=== PATIENT | male | born 1950 | race Caucasian/White ===

== ENCOUNTER → 2020-08-10 11:37 | Outpatient (BNVA) | payer MEDICARE, SELFPAY | PROVIDERS: PCP Internal Medicine; Visit Provider Urology | DX: N40.1 Benign prostatic hyperplasia with lower urinary tract symptoms (principal); N13.8 Other obstructive and reflux uropathy; R35.1 Nocturia; R97.20 Elevated prostate specific antigen [PSA] | CPT/HCPCS: Q3014 ==

== ENCOUNTER → 2021-08-11 08:35 | Outpatient (BNVA) | payer MEDICARE, SELFPAY | PROVIDERS: PCP Physician Assistant Medical; Visit Provider Urology | DX: N40.1 Benign prostatic hyperplasia with lower urinary tract symptoms (principal); N13.8 Other obstructive and reflux uropathy; R97.20 Elevated prostate specific antigen [PSA] | CPT/HCPCS: Q3014 ==

== ENCOUNTER → 2022-08-10 08:28 | Outpatient (BNVA) | payer MEDICARE, SELFPAY | PROVIDERS: PCP Physician Assistant Medical; Visit Provider Urology | DX: R97.20 Elevated prostate specific antigen [PSA] (principal); N40.1 Benign prostatic hyperplasia with lower urinary tract symptoms; N13.8 Other obstructive and reflux uropathy; R35.1 Nocturia | CPT/HCPCS: 99212 ==

== ENCOUNTER 2023-08-07 09:05 | Outpatient (AMB) | payer MEDICARE, SELFPAY ==
--- NOTE | 2023-08-07 09:28 | A.OFFVIS_ITS ---
Intake Intake Visit Reasons: 1Y PSA/PVR(SET) Intake Note: Patient is Present for Follow Up PVR/PSA Urology Medication: Finasteride, Antibiotic Allergies: None Blood Thinners: None PVR: 0 Compliants: Patient states that last appt he was prescribed tamsulosin, He was on it for 2 weeks and started to get vertigo from Tamsulosin. Since then he has not been back on the tamsulosin. Allergies aspirin Allergy (Unknown, Verified 08/07/23 09:35) Unknown tamsulosin Allergy (Mild, Uncoded 08/07/23 09:35) vertigo Medication List - Last Reconciled 08/07/23 by Bernardo Ramos MD amitriptyline mg PO amlodipine 5 mg PO DAILY atenolol 50 mg PO BID fuuuucfxqh-kibbyxzmmplkl-fjju 50-325-40 mg 1 cap PO TID ceduegvpdn-qdyggfoyjqnzi-ytvf 50-325-40 mg tabs PO citalopram 40 mg PO DAILY finasteride 5 mg PO DAILY lorazepam 0.5 mg PO BID HPI HPI Comments History of Present Illness Details Edison is a pleasant male. He is a patient of Dr. Mazariegos. 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 Has continued with finasteride. PSA 0.9. Interested in pelvic floor exercises Has post void leaking Instructions provided Son has been living with him since his last year Elevated PSA/Abnormal LINDSAY: He presents for Doing well with finasteride Nocturia minimize PSA stable. Current management is finasteride. Laboratory investigations include a total PSA evaluation 03/11 4.9, 06/11 4.1 - 07/12 Bladder US - prostate 45cc, good emptying 08/13 1.2, 08/14 1.7, 08/15 2.1, 08/16 1.8 Individualized Prostate Cancer Risk Calculator 5-10% high risk, Would like to continue with observation and understands and accepts the risks of a possible delay in diagnosis. Symptoms include 06/11 , incomplete emptying, weak stream, nocturia, x 3, and are worsening 08/13 , weak stream, and are stable. Therapeutic plan will be continued finasteride with surveillance [facility] Medical History Benign prostatic hyperplasia with lower urinary tract symptoms Elevated PSA High cholesterol Migraine Nocturia Poor urinary stream Surgical History History of surgery Review of Systems Const Denies chills and Denies fever(s) Card Reports no additional complaints and Denies syncope Resp Denies cough GI Denies abdominal pain and Denies heartburn Reports as per HPI and Denies change in libido Neuro Denies syncope Psych Denies change in libido Endo Denies change in libido Physical Exam Const General: cooperative, healthy appearing, comfortable and no acute distress Orientation/consciousness: patient oriented x3 HEENT Face and sinus: Yes normal facial exam Mouth: moist mucous membranes Neck Neck: Yes normal visual inspection, Yes full ROM and Yes trachea midline Chest Chest palpation & inspection: normal inspection of the chest Resp Effort & Inspection: normal respiratory effort, able to speak in complete sentences and no respiratory distress GI Inspection: Yes normal to inspection Back/Spine/Pelvis Cervical Spine: normal cervical lordosis Thoracic/Lumbar Spine: thoracic and lumbar spine normal to inspection Skin General skin exam: no rashes or lesions noted Neuro General: patient oriented x3, gait normal, tone normal and moves all extremities Extrem General: Yes normal to inspection and Yes capillary refill normal Office Procedures Post Void Residual Post Residual Void Post Void Residual (PVR): 0 [id number] Void Residual by ultrasound Assessment & Plan Assessment & Plan (1) Elevated PSA: Code(s): R97.20 - Elevated prostate specific antigen [PSA] (2) Nocturia more than twice per night: Code(s): R35.1 - Nocturia (3) BPH w urinary obs/LUTS: Code(s): N40.1 - Benign prostatic hyperplasia with lower urinary tract symptoms; N13.8 - Other obstructive and reflux uropathy (4) Post-void dribbling: Code(s): N39.43 - Post-void dribbling Plan Six month follow-up Orders: Orders AMB Post Void Residual by ultrasound Today N13.8 - Other obstructive and reflux uropathy, N40.1 - Benign prostatic hyperplasia with lower urinary tract symptoms Patient Instructions: Imaging studies, laboratory and physical exam results were discussed and reviewed in detail. No major barriers to patient understanding were identified. An opportunity to ask questions regarding the treatment plan was provided. All questions were answered. The patient expressed understanding and agreement with the above treatment plan. The patient is aware they should contact our office by phone for worsening of their current condition or the appearance of new urologic symptoms. Compliance is encouraged with any medications and followup testing that is ordered. It is a privilege to participate in the urologic care of your patient. If you have any questions or concerns regarding treatment for the above conditions, or other urologic issues, please do not hesitate to contact me. The office telephone contact is [phone]. This note is constructed using voice recognition software. While every effort has been made to ensure accuracy director school for blind errors may have been included. Yours sincerely, Dr Bernardo Ramos MD, [facility] - Urology Providers of Expert, Compassionate Care for the Genitourinary System Coding Level of Care Code Est Pt Level 4 (22444) Diagnoses Elevated PSA R97.20 Nocturia more than twice per night R35.1 BPH w urinary obs/LUTS N40.1; N13.8 Post-void dribbling N39.43 CPT Codes Post Residual Void - PVR CPT Code: 70669-Bkmk Void Residual by ultrasound ([id number])
== END 2023-08-07 10:03 | disposition home or self-care (01) ==
PROVIDERS: Visit Provider Urology
DX: N40.1 Benign prostatic hyperplasia with lower urinary tract symptoms (principal); R97.20 Elevated prostate specific antigen [PSA]; R35.1 Nocturia; N13.8 Other obstructive and reflux uropathy; N39.43 Post-void dribbling
CPT/HCPCS: 99213

== ENCOUNTER → 2023-08-07 09:05 | Outpatient (BNVA) | payer MEDICARE, SELFPAY | PROVIDERS: Visit Provider Urology | DX: R97.20 Elevated prostate specific antigen [PSA] (principal); N40.1 Benign prostatic hyperplasia with lower urinary tract symptoms; N13.8 Other obstructive and reflux uropathy; N39.43 Post-void dribbling; R35.1 Nocturia | CPT/HCPCS: 51798; 99212 ==

== ENCOUNTER 2024-08-06 09:05 | Outpatient (AMB) | payer MEDICARE, SELFPAY ==
--- NOTE | 2024-08-06 09:35 | A.OFFVIS_ITS ---
Intake Visit Reasons: 6m follow up Intake Note: Patient is present for 6M F/U Urology Medication:FINSTERIDE Antibiotic Allergy:TAMSULOSIN Blood Thinner:NONE Laser Beam Machine Operator Required: No Allergies aspirin Allergy (Unknown, Verified 08/06/24 09:36) Unknown tamsulosin Allergy (Mild, Uncoded 08/06/24 09:36) vertigo HPI Comments Details: Edison is a pleasant male. He is a patient of Dr. Mazariegos. 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 On finasteride Previously discussed pelvic floor exercises Check PSA in 12 months Son has been living with him since his last year Elevated PSA/Abnormal LINDSAY: He presents for Doing well with finasteride Nocturia minimize PSA stable. Current management is finasteride. Laboratory investigations include a total PSA evaluation 03/11 4.9, 06/11 4.1 - 07/12 Bladder US - prostate 45cc, good emptying 08/13 1.2, 08/14 1.7, 08/15 2.1, 08/16 1.8, 08/17 0.9 Individualized Prostate Cancer Risk Calculator 5-10% high risk, Would like to continue with observation and understands and accepts the risks of a possible delay in diagnosis. Symptoms include 06/11 , incomplete emptying, weak stream, nocturia, x 3, and are worsening 08/13 , weak stream, and are stable. Therapeutic plan will be continued finasteride with interval surveillance [facility] Medical History Benign prostatic hyperplasia with lower urinary tract symptoms Elevated PSA High cholesterol Migraine Nocturia Poor urinary stream Surgical History History of surgery Review of Systems Const Denies chills and Denies fever(s) Card Reports no additional complaints and Denies syncope Resp Denies cough GI Denies abdominal pain and Denies heartburn Reports as per HPI and Denies change in libido Neuro Denies syncope Psych Denies change in libido Endo Denies change in libido Physical Exam Const General: cooperative, healthy appearing, comfortable and no acute distress Orientation/consciousness: patient oriented x3 HEENT Face and sinus: Yes normal facial exam Mouth: moist mucous membranes Neck Neck: Yes normal visual inspection, Yes full ROM and Yes trachea midline Chest Chest palpation & inspection: normal inspection of the chest Resp Effort & Inspection: normal respiratory effort, able to speak in complete sentences and no respiratory distress GI Inspection: Yes normal to inspection Back/Spine/Pelvis Cervical Spine: normal cervical lordosis Thoracic/Lumbar Spine: thoracic and lumbar spine normal to inspection Skin General skin exam: no rashes or lesions noted Neuro General: patient oriented x3, gait normal, tone normal and moves all extremities Extrem General: Yes normal to inspection and Yes capillary refill normal Results AMB Urinalysis, Automated UA Leukoctes 0 Anitha/uL Last Edit by CARMEN Dickey on 08/06/24 09:46 UA Nitrite Negative Last Edit by CARMEN Dickey on 08/06/24 09:46 UA Urobilinogen 0.2 mg/dL Last Edit by CARMEN Dickey on 08/06/24 09:4 6 UA Protein 0 mg/dL Last Edit by CARMEN Dickey on 08/06/24 09:46 UA pH 6.0 Last Edit by CARMEN Dickey on 08/06/24 09:46 UA Blood 0 Oseas/uL Last Edit by CARMEN Dickey on 08/06/24 09:46 UA Specific Okay 1.010 Last Edit by CARMEN Dickey on 08/06/24 09: 46 UA Ketone Negative Last Edit by CARMEN Dickey on 08/06/24 09:46 UA Bilirubin 0 mg/dL Last Edit by CARMEN Dickey on 08/06/24 09:46 UA Glucose 0 mg/dL Last Edit by CARMEN Dickey on 08/06/24 09:46 Results Reviewed Results Reviewed: Laboratory Last Values Urine pH (Auto) 6.0 08/06/24 09:45 Specific Okay (Auto) 1.010 08/06/24 09:45 Urine Protein (Auto) 0 mg/dL 08/06/24 09:45 Glucose (UA)(Auto) 0 mg/dL 08/06/24 09:45 Urine Ketones (Auto) Negative 08/06/24 09:45 Urine Blood (Auto) 0 Oseas/uL 08/06/24 09:45 Urine Nitrite (Auto) Negative 08/06/24 09:45 Urine Bilirubin (Auto) 0 mg/dL 08/06/24 09:45 Urine Urobilinogen (Auto) 0.2 mg/dL 08/06/24 09:45 Leukocyte Esterase (Auto) 0 Anitha/uL 08/06/24 09:45 Assessment & Plan Assessment & Plan (1) BPH w urinary obs/LUTS: Code(s): N40.1 - Benign prostatic hyperplasia with lower urinary tract symptoms; N13.8 - Other obstructive and reflux uropathy Category: Medical (2) Nocturia more than twice per night: Code(s): R35.1 - Nocturia Category: Medical (3) Elevated PSA: Code(s): R97.20 - Elevated prostate specific antigen [PSA] Category: Medical Plan Twelve month follow-up PSA Orders: Orders AMB Urinalysis Automated Today Z13.9 - Encounter for screening, unspecified Prostate Specific Antigen 364 Days R97.20 - Elevated prostate specific antigen [PSA] Patient Instructions: Imaging studies, laboratory and physical exam results were discussed and reviewed in detail. No major barriers to patient understanding were identified. An opportunity to ask questions regarding the treatment plan was provided. All questions were answered. The patient expressed understanding and agreement with the above treatment plan. The patient is aware they should contact our office by phone for worsening of their current condition or the appearance of new urologic symptoms. Compliance is encouraged with any medications and followup testing that is ordered. It is a privilege to participate in the urologic care of your patient. If you have any questions or concerns regarding treatment for the above conditions, or other urologic issues, please do not hesitate to contact me. The office telephone contact is [phone]. This note is constructed using voice recognition software. While every effort has been made to ensure accuracy stock cutter errors may have been included. Yours sincerely, Dr Bernardo Ramos MD, [facility] - Urology Providers of Expert, Compassionate Care for the Genitourinary System Coding Level of Care Code Est Pt Level 4 (92241) Diagnoses BPH w urinary obs/LUTS N40.1; N13.8 Nocturia more than twice per night R35.1 Elevated PSA R97.20
== END 2024-08-06 10:25 | disposition home or self-care (01) ==
PROVIDERS: PCP Physician Assistant Medical; Visit Provider Urology
DX: N40.1 Benign prostatic hyperplasia with lower urinary tract symptoms (principal); N13.8 Other obstructive and reflux uropathy; R35.1 Nocturia; R97.20 Elevated prostate specific antigen [PSA]; Z13.9 Encounter for screening, unspecified
CPT/HCPCS: 99214

== ENCOUNTER → 2024-08-06 09:05 | Outpatient (BNVA) | payer MEDICARE, SELFPAY | PROVIDERS: PCP Physician Assistant Medical; Visit Provider Urology | DX: N40.1 Benign prostatic hyperplasia with lower urinary tract symptoms (principal); N13.8 Other obstructive and reflux uropathy; R35.1 Nocturia; R97.20 Elevated prostate specific antigen [PSA] | CPT/HCPCS: 81003; 99212 ==

== ENCOUNTER 2025-08-10 08:49 | Outpatient (AMB) | payer MEDICARE, SELFPAY ==
--- NOTE | 2025-08-10 09:34 | A.OFFVIS_ITS ---
Intake Visit Reasons: 1y/ PSA/SET/UA Intake Note: Patient is present for 1 yr follow up Urology Medication:FINSTERIDE, Amitriptyline Antibiotic Allergy: None Blood Thinner:NONE Labs done: 07/16/25 PSA 0.78 PVR:21 mls Fiber Picker Required: No Accompanied by: Self / Same As Patient Allergies aspirin Allergy (Unknown, Verified 08/10/25 09:38) Unknown tamsulosin Allergy (Mild, Uncoded 08/06/24 09:36) vertigo HPI Comments Details: Edison is a pleasant male. He is a patient of Dr. Mazariegos. 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 On finasteride - may use 3 times per week PVR 20 cc PSA remains low 08/19 0.8 Review in 12 month 2022 Elevated PSA/Abnormal LINDSAY: He presents for Doing well with finasteride Nocturia minimize PSA stable. Current management is finasteride. Laboratory investigations include a total PSA evaluation 03/11 4.9, 06/11 4.1 - 07/12 Bladder US - prostate 45cc, good emptying 08/13 1.2, 08/14 1.7, 08/15 2.1, 08/16 1.8, 08/17 0.9, 08/19 0.8 Individualized Prostate Cancer Risk Calculator 5-10% high risk, Would like to continue with observation and understands and accepts the risks of a possible delay in diagnosis. Symptoms include 06/11 , incomplete emptying, weak stream, nocturia, x 3, and are worsening 08/13 , weak stream, and are stable. Therapeutic plan will be continued finasteride with interval surveillance [facility] Medical History Benign prostatic hyperplasia with lower urinary tract symptoms Elevated PSA High cholesterol Migraine Nocturia Poor urinary stream Surgical History History of surgery Review of Systems Const Denies chills and Denies fever(s) Card Reports no additional complaints and Denies syncope Resp Denies cough GI Denies abdominal pain and Denies heartburn Reports as per HPI and Denies change in libido Neuro Denies syncope Psych Denies change in libido Endo Denies change in libido Physical Exam Const General: cooperative, healthy appearing, comfortable and no acute distress Orientation/consciousness: patient oriented x3 HEENT Face and sinus: Yes normal facial exam Mouth: moist mucous membranes Neck Neck: Yes normal visual inspection, Yes full ROM and Yes trachea midline Chest Chest palpation & inspection: normal inspection of the chest Resp Effort & Inspection: normal respiratory effort, able to speak in complete sentences and no respiratory distress GI Inspection: Yes normal to inspection Back/Spine/Pelvis Cervical Spine: normal cervical lordosis Thoracic/Lumbar Spine: thoracic and lumbar spine normal to inspection Skin General skin exam: no rashes or lesions noted Neuro General: patient oriented x3, gait normal, tone normal and moves all extremities Extrem General: Yes normal to inspection and Yes capillary refill normal Office Procedures Post Void Residual Post Residual Void Post Void Residual (PVR): 21 [id number] Void Residual by ultrasound Results AMB Urinalysis, Automated UA Leukoctes 0 Anitha/uL Last Edit by Aundrea Cabezas [facility] on 08/10/25 09:51 UA Nitrite Negative Last Edit by Aundrea Cabezas [facility] on 08/10/25 09:51 UA Urobilinogen 0.2 mg/dL Last Edit by Aundrea Cabezas [facility] on 08/10/25 09:51 UA Protein 0 mg/dL Last Edit by Aundrea Cabezas [facility] on 08/10/25 09:51 UA pH 6.0 Last Edit by Aundrea Cabezas [facility] on 08/10/25 09:51 UA Blood 0 Oseas/uL Last Edit by Aundrea Cabezas [facility] on 08/10/25 09:51 UA Specific [place] 1.005 Last Edit by Aundrea Cabezas [facility] on 08/10/25 09:5 1 UA Ketone Negative Last Edit by Aundrea Cabezas [facility] on 08/10/25 09:51 UA Bilirubin 0 mg/dL Last Edit by Aundrea Cabezas [facility] on 08/10/25 09:51 UA Glucose 0 mg/dL Last Edit by Aundrea Cabezas [facility] on 08/10/25 09:51 Results Reviewed Results Reviewed: Laboratory Last Values Urine pH (Auto) 6.0 08/10/25 09:50 Specific [place] (Auto) 1.005 08/10/25 09:50 Urine Protein (Auto) 0 mg/dL 08/10/25 09:50 Glucose (UA)(Auto) 0 mg/dL 08/10/25 09:50 Urine Ketones (Auto) Negative 08/10/25 09:50 Urine Blood (Auto) 0 Oseas/uL 08/10/25 09:50 Urine Nitrite (Auto) Negative 08/10/25 09:50 Urine Bilirubin (Auto) 0 mg/dL 08/10/25 09:50 Urine Urobilinogen (Auto) 0.2 mg/dL 08/10/25 09:50 Leukocyte Esterase (Auto) 0 Anitha/uL 08/10/25 09:50 Assessment & Plan Assessment & Plan (1) BPH w urinary obs/LUTS: Code(s): N40.1 - Benign prostatic hyperplasia with lower urinary tract symptoms; N13.8 - Other obstructive and reflux uropathy Category: Medical (2) Nocturia more than twice per night: Code(s): R35.1 - Nocturia Category: Medical Plan 12 month follow-up Orders: Orders Prostate Specific Antigen 12 Months N13.8 - Other obstructive and reflux uropathy, N40.1 - Benign prostatic hyperplasia with lower urinary tract symptoms AMB Urinalysis Automated 08/10/25 N13.8 - Other obstructive and reflux uropathy, N40.1 - Benign prostatic hyperplasia with lower urinary tract symptoms AMB Post Void Residual by ultrasound 08/10/25 N40.1 - Benign prostatic hyp erplasia with lower urinary tract symptoms Patient Instructions: This note is constructed using voice recognition software. While every effort has been made to ensure accuracy road mixer operator errors may have been included. Imaging studies, laboratory and physical exam results were discussed and reviewed in detail. No major barriers to patient understanding were identified. An opportunity to ask questions regarding the treatment plan was provided. All questions were answered. The patient expressed understanding and agreement with the above treatment plan. The patient is aware they should contact our office by phone for worsening of their current condition or the appearance of new urologic symptoms. Compliance is encouraged with any medications and followup testing that is ordered. It is a privilege to participate in the urologic care of your patient. If you have any questions or concerns regarding treatment for the above conditions, or other urologic issues, please do not hesitate to contact me. The office telephone contact is [phone]. Sincerely, Dr Bernardo Ramos MD, [facility] - Urology Compassionate Specialist Care for the Genitourinary System Coding Level of Care Code Est Pt Level 4 (44985) Add On Problem Visit Only Diagnoses BPH w urinary obs/LUTS N40.1; N13.8 Nocturia more than twice per night R35.1 CPT Codes Post Residual Void - PVR CPT Code: 35518-Ieev Void Residual by ultrasound ([id number])
--- OUTSIDE RECORDS SUMMARY | 2025-08-10 09:35 | XMS_ITS | Encounter Summary ---
Author Organization [facility] Address [address] [place] [address] Care Team Providers Care Design Checker Name Role Phone Keon Mazariegos Primary Care Provider [phone] Encounter Details Date Type Department Care Team ([facility] st Contact Info) Description 07/20/2025 Results Follow-Up Adult Medicine [facility] [address] [place], [place] [phone] Miya Loredo PA [address] [place], [place] Social History Tobacco Use Types Packs/Day Years Used Date Smoking Tobacco: Never Smokeless Tobacco: Never Alcohol Use Standard Drinks/Week Comments Yes 0 (1 standard drink = 0.6 oz pur e alcohol) Housing Instability Answer Date Recorde d Are you worried that in the next 2 months you may not have stable housing? No 07/16/2025 Food Access & Nutrition Answer Date Rec orded Do you have access to a vari ety of food including fruits and vegetables? Yes 07/16/2025 Health Literacy Answer Date Recorded How often do you need to hav e someone help you when you read instructions, pamphlets, or other written material from your doctor or pharmacy? Never 07/16/2025 Caregiver: How often do you need to have someone help you when you read instructions, pamphlets, or other written material from your doctor or pharmacy? Not on file 07/16/2025 Financial Risk Answer Date Recorded How hard is it for you to pa y for the very basics like food, housing, medical care, and air conditioning / heating? Not very hard 07/16/2025 Transportation Answer Date Recorded Has the lack of transportati on kept you from meetings, work, or from getting things needed for daily living? No Has the lack of transportati on kept you from medical appointments or from getting medications? No 07/16/2025 Social Isolation Answer Date Recorded How often do you feel lonely or isolated from th ose around you? Never 07/16/2025 Food Risk Answer Date Recorded Within the past 12 months we worried whether our food would run out before we got money to buy more. Never true 07/16/2025 Within the past 12 months th e food we bought just didn't last and we didn't have money to get more. Never true 07/16/2025 Dependent Care Answer Date Recorded Do you need help finding or paying for care for your loved ones. For example, early childhood teacher assistant or elderly care for an older adult? No 07/16/2025 Education Answer Date Recorded Do you think completing more education or training, like finishing a GED, going to college, or learning a trade, would be helpful for you? N/A 07/16/2025 Employment and Income Answer Date Recor ded During the last four weeks, have you been actively looking for work? No 07/16/2025 Living Situation Answer Date Recorded What is your living situation? Unrecognized valu e 07/16/2025 Sex and Gender Information Value Date Recorded Sex Assigned at Male 11/23/2024 10:13 AM EDT Legal Sex Male 3:26 PM EST Gender Identity Male 11/23/2024 10:13 AM EDT Sexual Orientation Straight 11/23/2024 10 :13 AM EDT documented as of this encounter Plan of Treatment Upcoming Encounters Date Type Department Care Team (Late st Contact Info) Description 01/21/2026 10:30 AM EDT Office Visit Adult Medicine [address] [phone] Keon Mazariegos PA [address] [place] [phone] 07/19/2026 10:45 AM EST Office Visit Pulmonology [address] [place] [address] Rachel Ruvalcaba MD [address] [place] [phone] documented as of this encounter Visit Diagnoses Not on filedocumented in this encounter Additional Health Concerns Assessment Noted Time PHQ-9 Depression Total Score: 0 07/16/20 12:16 PM EST A fall risk assessment has been complete d for the patient 07/16/2025 12:16 PM EST documented as of this encounter Care Teams Design Checker Relationship Specialty Start Date End Date Keon Mazariegos PA [address] [place] [address] PCP - General Internal Medicine 10/05/24 documented as of this encounter
--- OUTSIDE RECORDS SUMMARY | 2025-08-10 09:35 | XMS_ITS | Clinical Summary ---
Author Organization [address] Address [address] [place] [phone] Phone Care Team Providers Care Tight Barrel Inspector Name Role Phone Keon Mazariegos Primary Care Provider [phone] Allergies Active Allergy Reactions Criticality Noted Date Comments Orphenadrine Citrate 06/27/2006 passes out Salicylates 06/27/2006 bleeding ulcers Medications finasteride (PROSCAR) 5 mg tablet Take 1 tablet (5 mg total) by mouth 1 (one) time each day. 3 Active meclizine (ANTIVERT) 25 mg tablet Take 1 tablet (25 mg total) by mouth 3 (three) times a day if needed for dizziness (for up to 10 days). 3 Active SUMAtriptan (IMITREX) 50 mg tablet Take 1 tablet (50 mg total) by mouth if needed for migraine (MAY REPEAT DOSE AFTER TWO HOURS IF NO RELIEF). 1 Active amitriptyline (ELAVIL) 50 mg tablet TAKE 1 TABLET BY MOUTH EVERYDAY AT BEDTIME 90 tablet 1 5 Active citalopram (CeleXA) 40 mg tabletIndications :Essential (primary) hypertension,Enco unter for immunization TAKE 1 TABLET BY MOUTH EVERY DAY IN THE MORNING 90 tablet 3 5 Active mirtazapine (REMERON) 7.5 mg tablet TAKE 1 TABLET BY MOUTH EVERYDAY AT BEDTIME 90 tablet 5 Active atenoloL (TENORMIN) 50 mg tabletIndications :Essential (primary) hypertension,[place] gn prostatic hyperplasia without lower urinary tract symptoms TAKE 1 TABLET BY MOUTH TWICE A DAY 180 tablet 5 Active amLODIPine (NORVASC) 5 mg tabletIndications :Essential (primary) hypertension,[place]y gn prostatic hyperplasia without lower urinary tract symptoms TAKE 1 TABLET BY MOUTH EVERY DAY 90 tablet 5 Active butalbital-acetam inophen-caffeine (FIORICET, ESGIC) 50-325-40 mg per tablet TAKE 1 TABLET BY MOUTH EVERY 8 HOURS NEEDED FOR HEADACHE 84 tablet 5 Active LORazepam (ATIVAN) 0.5 mg tablet TAKE 1 TABLET BY MOUTH TWICE A DAY NEEDED FOR ANXIETY 56 tablet 5 Active benzonatate (TESSALON) 200 mg capsule Take 1 capsule (200 mg total) by mouth 3 (three) times a day if needed for cough for up to 10 days. Do not crush or chew. 30 capsule 5 07/25/20 25 Active Problems Problem Noted Date Diagnosed Date Low back pain without sciatica 06/16/2021 IBS (irritable bowel syndrome) 08/08/2016 Cataract of left eye 12/06/2015 Hypertrophy of prostate without urinary obstruct ion 08/10/2013 Anemia 05/26/2012 Anxiety 12/03/2007 Essential hypertension, benign 07/01/2006 Headache 06/27/2006 Encounters Date Type Department Care Team Description 07/20/2025 Results Follow-Up Adult Medicine [address] [phone] Miya Loredo PA 07/16/2025 1:00 PM EST Lab Draw [address] Encounter for long-term (current) use of high-risk medication; Elevated prostate specific antigen (PSA) 07/16/2025 12:30 PM EST Office Visit Adult Medicine [address] [phone] Miya Loredo PA Primary hypertension (Primary Dx); Other hyperlipidemia; IFG (impaired fasting glucose); Chronic anemia; Hypertrophy of prostate without urinary obstruction; Migraine with aura and without status migrainosus, not intractable; Anxiety; Encounter for long-term (current) use of high-risk medication; Encounter for FIT (fecal immunochemical test) screening 07/15/2025 11:30 AM EST Office Visit Pulmonology - [facility] [address] [facility] [address] [place] [phone] Rachel Ruvalcaba MD Cough, unspecified type (Primary Dx); Pulmonary nodule 06/08/2025 Results Follow-Up Adult Medicine [facility] [address] [place] [phone] Keon Mazariegos PA 06/08/2025 Telephone Adult Medicine [facility] [address] [place] [phone] Keon Mazariegos PA 05/28/2025 9:59 AM EDT - 05/28/2025 11:59 PM EDT Hospital Encounter [facility] CT Scan [address] [place] [phone] Lung nodule Discharge Disposition: Home or Self Care from Last 3 Months Immunizations Immunization Administration Dates Next Due Influenza Quadravalent, 0.5m l (Fluzone High-dose) 65yo and older 05/31/2021 Influenza trivalent, 0.5mL ( Fluzone High-dose) 65yo and older 05/28/2024,05/22/2023,05/21/2022,06/01,05/09/2018,06/18/2017 Influenza trivalent, with pr eservative (Fluzone; Afluria) 6mo and older 06/24/2016,05/30/2014,05/29/2013,05/26,05/30/2010,06/07/2009 Pneumococcal conjugate 13 va lent (Prevnar 13, PCV13) 2mo and older 02/10/2015 Pneumococcal polysaccharide 23 valent (Pneumovax 23) 2yo and older 02/20/2013 RSV, bivalent, protein subun it RSVpreF, 0.5mL, Preservative Free (Arexvy) 50yo and older 05/28/2023 Td Tetanus diptheria (Tdvax) 7yo and older 11/28/2018,08/26/1997 Tdap Tetanus diptheria acell ular pertussis (Boostrix; Adacel) 7yo and older 05/11/2008 Zoster Live 11/28/2009 Zoster recombinant (Shingrix ) 19yo and older 06/19/2022,04/19/2022 Surgical History Surgery Date Site/Laterality Comments APPENDECTOMY 03/22/2009 PROCEDURE: HISTORICAL APPENDECTOMY; COMMENT: [facility]; terminal ileum and cecum resected as well. HERNIA REPAIR 2010 PROCEDURE: HISTORICAL HERNIA REPAIR/ING; COMMENT: dr navarrete 2010 COLONOSCOPY 12/24/2005 PROCEDURE: HISTORICAL COLONOSCOPY; COMMENT: dr morrow; normal UPPER GASTROINTESTINAL ENDOSCOPY 12/24/2005 PROCEDURE: NE UPPER GI ENDOSCOPY PERFORMED; COMMENT: odalys at [facility]; normal COLONOSCOPY 03/15/2016 PROCEDURE: HISTORICAL COLONOSCOPY; COMMENT: 6 mm rectal polyp: tubular adenoma. Medical History Medical History Date Comments Essential hypertension, benign 07/01/2006 D X:Essential hypertension, benign Headache(784.0) 06/27/2006 DX:Headache(784. 0) Hx of agent [place] exposure 02/07/2016 DX:H x of agent [place] exposure; COMMENT: Patient was via nonveteran Personal history of colonic polyps 03/18/2017 DX:Personal history of colonic polyps; COMMENT: Last CN 2015 Next due in 2020 Family History Relation Name Status Comments Brother 1 alchohol Brother 2 Alive prostate issues myesthenia Father (Age 83) heart Mother (Age 56) cva Sister 1 Alive Sister 2 Alive Social History Tobacco Use Types Packs/Day Years Used Date Smoking Tobacco: Never Smokeless Tobacco: Never Tobacco Cessation:Counseling Given: Not Answered Alcohol Use Standard Drinks/Week Comments Yes 0 [...] care for your loved ones. For example, director of early childhood education or elderly care for an older adult? [...] Orientation Straight 11/23/2024 10 :13 AM EDT Last Filed Vital Signs Vital Sign Reading Time Taken Comments Blood Pressure 121/57 07/16/2025 12:16 PM EST Pulse 61 07/16/2025 12:16 PM EST Temperature 36.4 C (97.5 F) 07/16/2025 12:16 PM EST Respiratory Rate 13 07/16/2025 12:1 6 PM EST Oxygen Saturation 98% 07/16/2025 12: 16 PM EST Inhaled Oxygen Concentration - - Weight 62.1 kg (136 lb 12.8 oz) 025 12:16 PM EST Height 167.6 cm (5' 6 ) 07/16/2025 12:1 6 PM EST Body Mass Index 22.08 07/16/2025 12:16 PM EST Plan of Treatment Upcoming Encounters Date Type Department Care Team (Late st Contact Info) Description 01/21/2026 10:30 AM EDT Office Visit Adult Medicine [facility] [address] [place] [phone] Keon Mazariegos PA [address] [place] [phone] 07/19/2026 10:45 AM EST Office Visit Pulmonology [facility] [address] [facility] [address] [place] [phone] Rachel Ruvalcaba MD [address] [place] [phone] Health Maintenance Due Date Last Done Comments Drug Screen 1950 Naloxone Order 1950 Non-Opioid Controlled Substance Agreement 1948 Pain Assessment 1950 Colorectal Cancer Screening: Stool Based Tests (FOBT/FIT) 08/04/2022 Medicare Annual Wellness Visit 08/04/2022 Opioid Substance Agreement 10/28/2025 10/27/2025 COVID-19 Vaccine ( season) 2025 05/29/2025, 05/28/2024, 05/28/2023, Additional history exists Hypertension/CHF/CAD Annual BMP Blood Test 11/30/2025 11/30/2024, 11/26/2023 Falls Risk Assessment 07/16/2026 07/16/2025, 022 Social Influencers of Health Screening 07/16/2026 07/16/2025 DTaP,Tdap,and Td Vaccines (4 - Td or Tdap) 11/28/2028 11/28/2018, 05/11/2008, 08/26/1997 Cholesterol Screening (Lipid Panel) 11/30/2029 11/30/2024, 11/26/2023 Hepatitis C Screening Completed 12/02/2014 Pneumococcal Vaccine: 50+ Years Completed 02/10/2015, 02/20/2013 Zoster Vaccines Completed 06/19/2022, 03/27, 11/28/2009 RSV Immunization Adult Patients Completed 05/28/2023 Influenza Vaccine Completed 05/29/2025, , 05/22/2023, Additional history exists Depression Screening Completed 07/16/2025, 05/22/20 23 HIB Vaccines Aged Out No longer eligi ble based on patient's age to complete this topic HPV Vaccines Aged Out No longer eligi ble based on patient's age to complete this topic Hepatitis A Vaccines Aged Out No long er eligible based on patient's age to complete this topic Hepatitis B Vaccines Aged Out No long er eligible based on patient's age to complete this topic IPV Vaccines Aged Out No longer eligi ble based on patient's age to complete this topic MMR Vaccines Aged Out No longer eligi ble based on patient's age to complete this topic Meningococcal ACWY Vaccine Aged Out N o longer eligible based on patient's age to complete this topic Meningococcal B Vaccine Aged Out No l onger eligible based on patient's age to complete this topic RSV Immunization Patients Under 20 months Aged Out No longer eligible based on patient's age to complete this topic Varicella Vaccines Aged Out No longer eligible based on patient's age to complete this topic Procedures Procedure Name Priority Date/Time Associated Diagnosis Comments BARBITURATE, QUANTITATIVE, URINE Routine 07/16/2025 12:54 PM EST Encounter for long-term (current) use of high-risk medication PSA TOTAL, FREE AND COMPLEXED, DIAGNOSTIC Routine 07/16/2025 12:54 PM EST Elevated prostate specific antigen (PSA) DRUG ABUSE SCREEN EXPANDED WITH REFLEX CONFIRMATION, URINE Routine 07/16/2025 12:54 PM EST Encounter for long-term (current) use of high-risk medication CT CHEST WO CONTRAST Routine 05/28/2025 10:05 AM EDT Lung nodule COMPREHENSIVE METABOLIC PANEL Routine 11/30/2024 12:15 PM EDT Screen for colon cancer Essential hypertension, benign Hypertrophy of prostate without urinary obstruction Irritable bowel syndrome, unspecified type Anxiety Anemia, unspecified type LIPID PANEL WITH REFLEX TO DIRECT LDL Routine 11/30/2024 12:15 PM EDT Screen for colon cancer Essential hypertension, benign Hypertrophy of prostate without urinary obstruction Irritable bowel syndrome, unspecified type Anxiety Anemia, unspecified type DEPRESSION SCREENING Routine 05/22/2023 FALLS RISK ASSESSMENT Routine 05/21/2022 HEPATITIS C SCREENING Routine 12/02/2014 from Last 3 Months or Most Recently Relevant to Health Maintenance Results * (ABNORMAL) PSA total, free and complexed (07/16/2025 12:54 PM EST) PSA 0.78 0.00 - 4.00 ng/mL 07/16/2025 4:47 PM EST [facility] PSA, Complexed 0.83 0.00 - 3.00 ng/mL 07/16/2025 4:47 PM EST [facility] PSA, Free -0.1 ng/mL 07/16/2025 4:47 PM EST [facility] PSA, Free Pct <0.0(L) >25.0 % 07/16/2025 4:47 PM EST [facility] Blood Venous blood specimen / Unknown Venipuncture / Unknown 07/16/2025 12:54 PM EST 07/16/2025 12:54 PM EST Narrative [facility] - 07/16/2025 4:47 PM EST The Siemens GojeellLatio IM Chemiluminescent Immunoassay is used. Results obtained with different assay methods or kits cannot be used interchangeably. Results cannot be interpreted as absolute evidence of the presence or absence of malignant disease. us Bernardo Ramos MD LAB BLOOD ORDERABLES Final Re sult [facility] [address] [place] [address], [place] [phone] * (ABNORMAL) Drug abuse screen expanded with reflex confirmation, urine (07/16/2025 12:54 PM EST) [facility] Signature Amphetamine Screen, Ur Negative Negative 07/16/2025 4:50 PM EST [facility] Comment:Certain OTC medicati ons containing ephedrine, phenylephrine, pseudoephedrine and phenylpropanolamine can cause false positive results. Barbiturate Screen, Ur Positive(A ) Negative 07/16/2025 4:50 PM EST [facility] Benzodiazepine Screen, Ur Negative Negative 07/16/2025 4:50 PM [facility] Cocaine Screen, Ur Negative Negative 2024 4:50 PM [facility] Opiate Screen, Ur Negative Negative 025 4:50 PM [facility] Cannabinoid (THC) Screen, Ur Negative Negative 07/16/2025 4:50 PM EST [facility] Comment:Specimens from patie nts taking pantoprazole sodium (Protonix) have been shown to produce false positive results. Fentanyl, Ur Negative Negative 07/16/2025 4:50 PM [facility] Oxycodone Screen, Ur Negative Negative 06/27 4:50 PM [facility] Urine Urine specimen obtained by clean catch procedure / Unknown Non-blood Collection / Unknown 07/16/2025 12:54 PM EST 07/16/2025 12:54 PM EST [facility] - 07/16/2025 4:50 PM EST Assay cutoffs: Amphetamines 1000 ng/mL Barbiturates 200 ng/mL Benzodiazepines 200 ng/mL Cocaine 300 ng/mL Fentanyl 1 ng/mL Opiates 300 ng/mL Oxycodone 100 ng/mL THC 50 ng/mL Semi-quantitative assay for screening purposes only. Unconfirmed screening result should not be used for non-medical purposes. *POSITIVE RESULTS ARE AUTOMATICALLY SENT FOR ALTERNATE METHOD CONFIRMATION* us Miya Loredo PA LAB URINE ORDERABLES Final Resul t [facility] ([facility]) [facility] [address] [place] [address], * (ABNORMAL) Barbiturate, quantitative, urine (07/16/2025 12:54 PM EST) Amobarbital Confirm, Urine Negative Negative ng/mL 07/19/2025 4:52 PM EST [facility] Butabarbital Confirm, Urine Negative Negative ng/mL 07/19/2025 4:52 PM EST [facility] Butalbital Confirm, Urine 1578(H) Negative ng/mL 07/19/2025 4:52 PM EST [facility] Pentobarbital Confirm, Urine Negative Negative ng/mL 07/19/2025 4:52 PM EST [facility] Phenobarbital Confirm, Urine Negative Negative ng/mL 07/19/2025 4:52 PM EST [facility] Secobarbital Confirm, Urine Negative Negative ng/mL 07/19/2025 4:52 PM EST [facility] Creatinine 53 20 - 250 mg/dL 07/19/2025 4:52 PM EST [facility] Adulterants Negative 07/19/2025 4:52 PM EST [facility] Comment: Confirmation (GC/MS) Decision Limits Amobarbital 40 ng/mL Butabarbital 40 ng/mL Butalbital 40 ng/mL Pentobarbital 40 ng/mL Phenobarbital 200 ng/mL Secobarbital 40 ng/mL Adulterant Decision Limit: General Oxidants 200 ug/mL The adulterant assay tests for General Oxidants, including Chromates and Nitrites. Adulterants are substances either ingested or added directly to a urine specimen to prevent the detection of drug use. If applicable, any drug confirmation testing reported here was developed and the performance characteristics determined by [facility]. This confirmation testing has not been cleared or approved by the FDA. The laboratory is regulated under CLIA as qualified to perform high-complexity testing. This test is used for patient testing purposes. It should not be regarded as investigational or for research. Test performed at [facility], [address], [place] [address] Roslyn Noriega MD, PhD - Nailing Machine Operator Urine Urine specimen obtained by clean catch procedure / Unknown Non-blood Collection / Unknown 07/16/2025 12:54 PM EST 07/16/2025 4:50 PM EST us Miya Loredo [facility] URINE ORDERABLES Final Resul t [facility] [address] [place] [address] * CT Chest wo Contrast (05/28/2025 10:05 AM EDT) Anatomical Region Laterality Modality Body Computed Tomogra phy 06/08/2025 10:3 5 AM EDT Impressions 06/08/2025 10:47 AM EDT Impression: 1. Stable 6 mm right lower lobe nodule since 06/03/24, reassuring for a benign process. A one year follow-up CT could be considered. 2. No developing thoracic lymphadenopathy. [facility] CO[facility] ([id number]) -------- FINAL REPORT -------- Dictated By: Flavia Prescott Dictated Date: 06/08/2025 10:35 ET Assigned Physician: Flavia Prescott Reviewed and Electronically Signed By: Flavia Prescott Signed Date: 06/08/2025 10:47 ET Workstation ID: [id number] Transcribed By: Self Edit Transcribed Date: 06/08/2025 10:35 ET Narrative 06/08/2025 10:47 AM EDT History: Follow-up pulmonary nodule. Comparison: 11/23/24, 06/03/24 Technique: Helical volumetric imaging of the thorax was performed without IV contrast. DLP: 209.79 mGy/cm Targeter App Iterative reconstruction technique Findings: A 6 mm solid, noncalcified nodule in the right lower lobe being followed (image 160 series 3) is unchanged dating back to the outside CT from 2023, reassuring for a benign process. No suspicious developing nodule is seen. The trachea and central bronchial tree remain patent. There is diffuse cylindrical bronchiectasis bilaterally, unchanged. Biapical partially calcified pleural parenchymal scarring versus calcified pleural plaques is unchanged. There is patchy centrilobular emphysema. No pleural or pericardial effusions are identified. The heart remains normal in size. Mild atherosclerotic calcification of the thoracic aorta is seen. The left vertebral artery arises from the aortic arch, an anatomic variant. No thoracic lymphadenopathy is seen. A small portion of the upper abdomen included on the lowest images through the thorax is remarkable for cortical scarring in the upper poles of both kidneys, partially imaged, unchanged. A 10 mm round, sclerotic lesion within the T9 vertebral body is stable since 06/03/24, most likely a benign bone island. Procedure Note Flavia Prescott MD - 06/08/2025 History: Follow-up pulmonary nodule. Comparison: 11/23/24, 06/03/24 Technique: Helical volumetric imaging of the thorax was performed withoutIV contrast. DLP: 209.79 mGy/cm [email or web address] Iterative reconstruction technique Findings: A 6 mm solid, noncalcified nodule in the right lower lobe being followed(image 160 series 3) is unchanged dating back to the outside CT from 2023,reassuring for a benign process. No suspicious developing nodule isseen. The trachea and central bronchial tree remain patent. There is diffusecylindrical bronchiectasis bilaterally, unchanged. Biapical partiallycalcified pleural parenchymal scarring versus calcified pleural plaques isunchanged. There is patchy centrilobular emphysema. No pleural or pericardial effusions are identified. The heart remains normal in size. Mild atherosclerotic calcification ofthe thoracic aorta is seen. The left vertebral artery arises from theaortic arch, an anatomic variant. No thoracic lymphadenopathy is seen. A small portion of the upper abdomen included on the lowest images throughthe thorax is remarkable for cortical scarring in the upper poles of bothkidneys, partially imaged, unchanged. A 10 mm round, sclerotic lesionwithin the T9 vertebral body is stable since 06/03/24, most likely a benignbone island. IMPRESSION: Impression: 1. Stable 6 mm right lower lobe nodule since 06/03/24, reassuring for abenign process. A one year follow-up CT could be considered. 2. No developing thoracic lymphadenopathy. [facility] ([id number]) -------- FINAL REPORT -------- Dictated By: Flavia Prescott Dictated Date: 06/08/2025 10:35 ET Assigned Physician: Flavia Prescott Reviewed and Electronically Signed By: Flavia Prescott Signed Date: 06/08/2025 10:47 ET Workstation ID: [id number] Transcribed By: Self Edit Transcribed Date: 06/08/2025 10:35 ET Keon COHN IMG CT PROCEDURES Final R esult * (ABNORMAL) Lipid panel with reflex to direct LDL (11/30/2024 12:15 PM EDT) Cholesterol 205(H) 0 - 200 mg/dL LAB CHEMISTRY METHOD 11/30/2024 3:21 PM EDT [facility] Triglycerides 159(H) 0 - 150 mg/dL LAB CHEMISTRY METHOD 11/30/2024 3:21 PM EDT [facility] HDL 73 >=40 mg/dL LAB CHEMISTRY METHOD 11/30/2024 3:21 PM EDT [facility] LDL Calculated 100 0 - 100 mg/dL LAB CHEMISTRY METHOD 11/30/2024 3:21 PM EDT [facility] VLDL Cholesterol Shiva 31.8 mg/dL LAB CHEMISTRY METHOD 11/30/2024 3:21 PM EDT [facility] Non HDL Chol. (LDL+VLDL) 132 <145 mg/dL LAB CHEMISTRY METHOD 11/30/2024 3:21 PM EDT [facility] Chol/HDL Ratio 2.8 0.0 - 4.4 LAB CHEMISTRY METHOD 11/30/2024 3:21 PM EDT [facility] Blood Venous blood specimen / Unknown Venipuncture / Unknown 11/30/2024 12:15 PM EDT 11/30/2024 12:15 PM EDT Keon COHN LAB BLOOD ORDERABLES Rae l Result [facility] [address] [place] [address], [place] [phone] * (ABNORMAL) Comprehensive metabolic panel (11/30/2024 12:15 PM EDT) Sodium 137 133 - 145 mmol/L LAB CHEMISTRY METHOD 11/30/2024 3:21 PM [facility] Potassium 4.6 3.5 - 5.5 mmol/L LAB CHEMISTRY METHOD 11/30/2024 3:21 PM [facility] Chloride 104 96 - 110 mmol/L LAB CHEMISTRY METHOD 11/30/2024 3:21 PM [facility] CO2 25 21 - 32 mmol/L LAB CHEMISTRY METHOD 11/30/2024 3:21 PM [facility] Anion Gap 8 3 - 11 LAB CHEMISTRY METHOD 11/30/2024 3:21 PM [facility] Glucose 137(H) 70 - 100 mg/dL LAB CHEMISTRY METHOD 11/30/2024 3:21 PM [facility] BUN 16 5 - 25 mg/dL LAB CHEMISTRY METHOD 11/30/2024 3:21 PM [facility] Creatinine 0.88 0.70 - 1.30 mg/dL LAB CHEMISTRY METHOD 11/30/2024 3:21 PM [facility] eGFR 89 >=60 mL/min/1. 73m2 LAB CHEMISTRY METHOD 11/30/2024 3:21 PM [facility] Comment:Calculation based on the Chronic Kidney Disease Epidemiology Collaboration (CKD-EPI) equation refit without adjustment for race. BUN/Creatinine Ratio 18.2 LAB CHEMISTRY METHOD 11/30/2024 3:21 PM [facility] Calcium 9.3 8.5 - 10.5 mg/dL LAB CHEMISTRY METHOD 11/30/2024 3:21 PM [facility] AST (SGOT) 15 10 - 42 unit/L LAB CHEMISTRY METHOD 11/30/2024 3:21 PM [facility] ALT (SGPT) 23 10 - 60 unit/L LAB CHEMISTRY METHOD 11/30/2024 3:21 PM EDT [facility] Alkaline Phosphatase 121 42 - 121 unit/L LAB CHEMISTRY METHOD 11/30/2024 3:21 PM EDT [facility] Total Protein 7.2 6.0 - 8.0 g/dL LAB CHEMISTRY METHOD 11/30/2024 3:21 PM EDT [facility] Albumin 4.2 3.2 - 5.0 g/dL LAB CHEMISTRY METHOD 11/30/2024 3:21 PM EDT [facility] Total Bilirubin 0.3 0.0 - 1.4 mg/dL LAB CHEMISTRY METHOD 11/30/2024 3:21 PM EDT [facility] Blood Venous blood specimen / Unknown Venipuncture / Unknown 11/30/2024 12:15 PM EDT 11/30/2024 12:15 PM EDT Keon COHN LAB BLOOD ORDERABLES Rae l Result [facility] [address] [place] [address], * Depression Screening (05/22/2023) Pathologist [facility] Depression Screening abstracted Historical Provider HEALTH MAINTENANCE Final Result * Falls Risk Assessment (05/21/2022) Pathologist [facility] Falls Risk Assessment abstracted Historical Provider HEALTH MAINTENANCE Final Result * Hepatitis C Screening (12/02/2014) Pathologist [facility] Hepatitis C Screening abstracted Historical Provider HEALTH MAINTENANCE Final Result from Last 3 Months or Most Recently Relevant to Health Maintenance Insurance [employer] [place] [employer] Care Teams Tight Barrel Inspector Relationship Specialty Start Date End Date Keon Mazariegos PA [address] [place] [id number] PCP - General Internal Medicine 10/05/24
--- OUTSIDE RECORDS SUMMARY | 2025-08-10 09:35 | XMS_ITS | Encounter Summary ---
Author Organization [facility] Address [address] [place] [address] Care Team Providers Care Shipping And Receiving Operator Name Role Phone Keon Mazariegos Primary Care Provider [phone] Encounter Details Date Type Department Care Team ([facility] st Contact Info) Description 06/08/2025 Results Follow-Up Adult Medicine [address] [phone] Keon Mazariegos PA [address] [place] [address] Social History Tobacco Use Types Packs/Day Years [...] care for your loved ones. For example, childrens club attendant or elderly care for an older adult? [...] 10:30 AM EDT Office Visit Adult Medicine [address] [phone] Keon Mazariegos PA [address] [place] [phone] 07/19/2026 10:45 AM EST Office Visit Pulmonology [address] [place] [address] Rachel Ruvalcaba MD [address] [place] [address] documented as of this encounter Visit Diagnoses Not on filedocumented in this encounter Care Teams Shipping And Receiving Operator Relationship Specialty Start Date End Date Keon Mazariegos PA [address] [place] [address] PCP - General Internal Medicine 10/05/24 documented as of this encounter
--- OUTSIDE RECORDS SUMMARY | 2025-08-10 09:35 | XMS_ITS ---
Author Name [facility] Organization Unknown Care Team Organization Name Specialty Phone Email Start Date End Da te [facility] Keon Mazariegos Primary Care 12/31/2022 [facility] [place] [facility] 07/03/2022
== END 2025-08-10 10:32 | disposition home or self-care (01) ==
LOC: HO.HUSH 08:49
PROVIDERS: PCP Physician Assistant Medical; Visit Provider Urology
DX: N40.1 Benign prostatic hyperplasia with lower urinary tract symptoms (principal); N13.8 Other obstructive and reflux uropathy; R35.1 Nocturia
CPT/HCPCS: 99214; G2211

== ENCOUNTER → 2025-08-10 08:49 | Outpatient (BNVA) | payer MEDICARE, SELFPAY | PROVIDERS: PCP Physician Assistant Medical; Visit Provider Urology | DX: N40.1 Benign prostatic hyperplasia with lower urinary tract symptoms (principal); N13.8 Other obstructive and reflux uropathy; R35.1 Nocturia | CPT/HCPCS: 51798; 81003; 99212 ==